=== PATIENT | male | born 1995 | race Caucasian/White ===

== ENCOUNTER 2021-01-22 12:43 | Outpatient (CLI) | payer OTHER, SELFPAY ==
--- NOTE | 2021-01-22 | ECG_ITS ---
Measurements Intervals [place] Rate: 53 P: 53 [place]: 160 QRS: 92 QRSD: 102 T: 64 QT: 386 QTc: 364 Interpretive Statements SINUS BRADYCARDIA WITH SINUS ARRHYTHMIA RIGHT AXIS DEVIATION INCOMPLETE RIGHT BUNDLE BRANCH BLOCK BORDERLINE ECG Electronically Signed On 01-22-2021 13:18:08 CDT by Addi Paniagua D.O.
== END 2021-01-22 12:44 | disposition home or self-care (01) ==
LOC: ANHCARD 12:46
PROVIDERS: PCP Physician Assistant; Visit Provider Physician Assistant
DX: G40.909 Epilepsy, unspecified, not intractable, without status epilepticus (principal); I45.10 Unspecified right bundle-branch block
CPT/HCPCS: 93005

== ENCOUNTER 2023-02-13 17:33 | Emergency (ER) | payer OTHER, SELFPAY ==
--- NOTE | ~2023-02-13 | XR_ITS ---
EXAMINATION: XR knee RT min 4V DATE: 02/13/2023 19:19 INDICATION: Right knee pain. TECHNIQUE: 4 views of right knee were obtained. COMPARISON: None. FINDINGS: Bone alignment is normal. No fracture. There is mild tricompartmental osteoarthritis charac terized by marginal osteophytes. No joint space narrowing. There are surgical changes of anterior cru ciate ligament reconstruction. No knee joint effusion. There is a 5 mm loose body in the anterior int ercondylar notch. IMPRESSION: 1. Mild right knee osteoarthritis. 2. Loose body in the knee joint. Reviewed, dictated and finalized at location E.
--- NOTE | ~2023-02-13 | US_ITS ---
EXAMINATION: US venous doppler LE RT DATE: 02/13/2023 19:39 INDICATION: Right lower limb swelling and pain. TECHNIQUE: Grayscale ultrasound images without and with compression and Doppler ultrasound images of the right lower extremity veins were obtained. COMPARISON: None. FINDINGS: The visualized portions of right common femoral vein, profunda (deep) femoral vein, femoral vein, pop liteal vein, peroneal veins, posterior tibial veins, and greater saphenous vein outflow are patent. IMPRESSION: 1. No deep venous thrombosis. Reviewed, dictated and finalized at location E.
[2023-02-13 17:45] VITALS: BP 139/75; PULSE 77; RESP 18; TEMP 36.4; O2SAT 98
--- NOTE | 2023-02-13 19:01 | ED.EXTPRO ---
HPI - Extremity Problem General Chief complaint: Extremity Problem,Nontraumatic Stated complaint: bilateral leg swelling Time Seen by Provider: 02/13/23 18:06 History of Present Illness HPI Narrative: 27-year-old male reports for evaluation of posterior right knee pain for the past 3 to 4 days with right leg swelling that started yesterday. Patient reports a history of a torn ACL that was repaired in 2018, he believes he retore it a year ago, however has not been evaluated. He reports the pain starts in the posterior aspect of his knee and radiates up his thigh. He denies any recent trauma or injury, ecchymosis, laceration, abrasion, rash, erythema or warmth, fever, history of DVT, weakness or numbness, chest pain or shortness of breath. He has been taking naproxen daily with some relief. Related Data Allergies Allergy/AdvReac Type Severity Reaction Status Date / Time BEE STINGS Allergy Swelling Uncoded 02/13/23 17:34 Review of Systems Review of Systems: CONSTITUTIONAL: Denies fever, chills EYES: Denies visual changes, redness, or discharge. ENT: Denies rhinorrhea, congestion, sore throat, or otalgia. CARDIOVASCULAR: Denies chest pain, palpitations, or edema. RESPIRATORY: Denies cough or dyspnea. GASTROINTESTINAL: Denies abdominal pain, nausea, vomiting, or diarrhea. GENITOURINARY: Denies dysuria or hematuria. SKIN: Denies rash or itching. MUSCULOSKELETAL: See HPI NEUROLOGIC: Denies headache, numbness, dizziness, or weakness. PSYCHIATRIC: Denies anxiety or depression. Exam Narrative: GENERAL: Well-appearing, in no acute distress. Patient resting comfortably examined. He is pleasant and conversational. HEAD: Normocephalic EYES: PERRLA ENT: Nares clear. Mucous membranes moist. Oropharynx without tonsillar hypertrophy exudate or other lesions. NECK: Supple. CHEST: No respiratory distress. Clear to auscultation, no adventitious breath sounds. HEART: Regular rate and rhythm. No murmur heard. Normal peripheral pulses. EXTREMITIES: RLE: Diffuse edema extending from the knee into the ankle. Tenderness to the popliteal fossa with palpation. No warmth, erythema or ballottement to the knee. Negative anterior drawer, posterior drawer. No laxity or pain with varus or valgus stress. DP pulse 2+. Cap refill less than 2. Sensation intact. No tenderness to remaining lower extremity. NEURO: No focal deficits. Alert and oriented x3. PSYCH: Normal mood and affect. Course Course Emergency Course: Offered knee immobilizer and crutches, patient declined and prefers Dimitri wrap. Vital Signs Vital signs: Vital Signs Temperature 97.6 F 02/13/23 17:45 Pulse Rate 77 02/13/23 17:45 Respiratory Rate 18 02/13/23 17:45 Blood Pressure 139/75 02/13/23 17:45 Pulse Oximetry 98 02/13/23 17:45 Oxygen Delivery Room Air 02/13/23 17:45 Temperature 97.6 F 02/13/23 17:45 Pulse Rate 77 02/13/23 17:45 Respiratory Rate 18 02/13/23 17:45 Blood Pressure 139/75 02/13/23 17:45 Pulse Oximetry 98 02/13/23 17:45 Oxygen Delivery Room Air 02/13/23 17:45 MDM - Extremity (Nontraumatic) MDM Narrative Medical decision making narrative: 27-year-old male reports for evaluation of right knee pain and lower extremity swelling for the past 3 to 4 days. Exam reveals tenderness to the popliteal fossa and generalized edema. Patient neurovascularly intact. Dopplers negative. X-ray without acute osseous abnormality. Discussed imaging findings with patient and advised him to follow-up with an orthopedist considering his ACL history. Dimitri wrap provided. Advised patient take Tylenol ibuprofen for pain and RICE. Pt agrees with plan and verbalizes understanding. Vitals stable. ED return precautions discussed. Discharged in stable condition. Discharge Plan Discharge Clinical Impression: Knee pain, right Qualifiers: Chronicity: acute Qualified Code(s): M25.561 - Pain in right knee Patient Disposition: Home, Se
[2023-02-13] MEDS: CYCLOBENZAPRINE HCL 10 MG TABLET PO (19:16)
[2023-02-13] MEDS: ACETAMINOPHEN 500 MG TABLET 1000 MG PO (19:16)
[2023-02-13] MEDS: IBUPROFEN 600 MG TABLET PO (19:16)
== END 2023-02-13 20:18 | disposition home or self-care (01) ==
PROVIDERS: Emergency Provider Physician Assistant; PCP Physician Assistant
DX: M25.561 Pain in right knee (principal); M17.11 Unilateral primary osteoarthritis, right knee
CPT/HCPCS: 73564; 93971; 99284; A9270

== ENCOUNTER 2024-05-28 22:15 | Emergency (ER) | payer OTHER, MEDICAID, SELFPAY ==
--- NOTE | ~2024-05-28 | XR_ITS ---
XR chest 2V Ordering provider: Shasha Serrato PA-C History: 28 years Male with . pleuritic chest pain . Comparison: March 11, 2024 FINDINGS: MEDIASTINUM: The cardiac silhouette is not enlarged. LUNGS: No infiltrates, effusions or pneumothorax. OTHER: No free air under the diaphragm. IMPRESSION: No acute cardiopulmonary pathology. Reviewed, dictated and finalized at location A.
[2024-05-28 22:21] VITALS: BP 125/67; PULSE 67; RESP 17; TEMP 36.3; O2SAT 98
--- NOTE | 2024-05-29 00:27 | ED.GENADULT ---
HPI - General Adult General Chief complaint: Unspecified Stated complaint: pain with inspiration Time Seen by Provider: 05/29/24 00:17 History of Present Illness HPI narrative: patient 28-year-old gentleman who presents emergency department with chief complaint of cough and pain in the chest for with inspiration. Patient reports that said upper respiratory type symptoms for several days reports that he was exposed to asbestos. Related Data Allergies Allergy/AdvReac Type Severity Reaction Status Date / Time BEE STINGS Allergy Swelling Uncoded 02/13/23 17:34 Review of Systems Review of Systems: A 10 system review of systems was completed on the patient and is negative except for what is stated in the HPI. Nursing and ancillary documentation was reviewed. Exam Narrative: GENERAL: Well-appearing, well-nourished, and in no acute distress. HEAD: Normocephalic, atraumatic. EYES: PERRLA and EOMI. ENT: Nares clear, no rhinorrhea or epistaxis. Mucous membranes moist. NECK: Supple. CHEST: Clear to auscultation. No respiratory distress. HEART: Regular rate and rhythm. No murmur heard. Normal peripheral pulses. ABDOMEN: Soft, nontender, nondistended, normal active bowel sounds. EXTREMITIES: Normal range of motion. No edema. SKIN: Warm, dry, no rash. NEURO: No focal deficits. Alert and oriented x3. PSYCH: Normal mood and affect. Course Vital Signs Vital signs: Vital Signs Temperature 36.3 C L 05/28/24 22:21 Pulse Rate 67 05/28/24 22:21 Respiratory Rate 17 05/28/24 22:21 Blood Pressure 125/67 05/28/24 22:21 Pulse Oximetry 98 05/28/24 22:21 Oxygen Delivery Room Air 05/28/24 22:21 Temperature 36.3 C L 05/28/24 22:21 Pulse Rate 67 05/28/24 22:21 Respiratory Rate 17 05/28/24 22:21 Blood Pressure 125/67 05/28/24 22:21 Pulse Oximetry 98 05/29/24 01:18 Oxygen Delivery Room Air 05/29/24 01:18 Medical Decision Making [facility] Narrative Medical decision making narrative: Differential diagnosis includes pneumonia, pneumothorax, bronchitis, viral illness Chest x-ray showed no evidence of focal infiltrate COVID flu and RSV are negative strep is negative Vital Signs Vital Signs: Vital Signs Temperature 36.3 C L 05/28/24 22:21 Pulse Rate 67 05/28/24 22:21 Respiratory Rate 17 05/28/24 22:21 Blood Pressure 125/67 05/28/24 22:21 Pulse Oximetry 98 05/28/24 22:21 Oxygen Delivery Room Air 05/28/24 22:21 Temperature 36.3 C L 05/28/24 22:21 Pulse Rate 67 05/28/24 22:21 Respiratory Rate 17 05/28/24 22:21 Blood Pressure 125/67 05/28/24 22:21 Pulse Oximetry 98 05/29/24 01:18 Oxygen Delivery Room Air 05/29/24 01:18 Lab Data Labs: Lab Results 05/29/24 Range/Units 00:33 Influenza A (RT-PCR) Negative (Negative) Influenza B (RT-PCR) Negative (Negative) RSV (RT-PCR) Negative (Negative) SARS-CoV-2 RNA (RT-PCR) Negative (Negative) Group A Strep (PCR) Not detected (Negative) Discharge Plan Discharge Clinical Impression: Acute upper respiratory infection Patient Disposition: Home, Self-Care Condition: Stable Instructions: Antibiotic Form, Upper Respiratory Infection (ED), Viral Syndrome (ED) Prescriptions: New prednisone 20 mg tablet 40 mg PO DAILY 5 Days Qty: 10 0RF benzonatate 200 mg capsule 200 mg PO TID PRN (Reason: cough) Qty: 21 0RF Follow-up/Referrals: Jose Martin Vergara MD [Physician] - UNKNOWN,DOCTOR [Primary Care Provider] - Time of Disposition: 01:53
[2024-05-29] MEDS: BENZONATATE 100 MG CAPSULE 200 MG PO (00:38)
[2024-05-29] MEDS: predniSONE 20 MG TABLET 60 MG PO (00:39)
[2024-05-29 01:06] LABS: Strep Group A RT-PCR NOT DETECTED (Negative)
[2024-05-29 01:14] LABS: Influenza A QL RT-PCR Negative (Negative); Influenza B QL RT-PCR Negative (Negative); RSV RNA, RT-PCR Negative (Negative); SARS-CoV-2 RNA PCR Negative (Negative)
[2024-05-29 01:18] VITALS: O2SAT 98
[2024-05-29 03:45] VITALS: BP 124/68; PULSE 68; RESP 15; O2SAT 99
== END 2024-05-29 03:49 | disposition home or self-care (01) ==
PROVIDERS: Emergency Provider Emergency Medicine
DX: J06.9 Acute upper respiratory infection, unspecified (principal); Z20.822 Contact with and (suspected) exposure to COVID-19
CPT/HCPCS: 71046; 87637; 87651; 99283; A9270; J7512

== ENCOUNTER 2024-08-07 21:58 | Emergency (ER) | payer OTHER, MEDICAID, SELFPAY ==
--- NOTE | ~2024-08-07 | XR_ITS ---
EXAMINATION: XR chest 1V portable DATE: 08/07/2024 22:56 INDICATION: Malaise and dyspnea TECHNIQUE: frontal view of the chest was obtained. COMPARISON: Chest radiograph dated 05/28/2024 FINDINGS: The lungs remain clear with no focal airspace opacities, pulmonary edema, pleural effusion or pneumot horax. The cardiomediastinal silhouette is normal. Visualized bones and soft tissues are unremarkable . IMPRESSION: 1. Normal chest radiograph. Reviewed, dictated and finalized at location A. MANAGER IMPRESSION: 1. Normal chest radiograph.
[2024-08-07 22:01] VITALS: BP 130/70; PULSE 101; RESP 20; TEMP 37.4; O2SAT 100
--- NOTE | 2024-08-07 22:25 | ECG_ITS ---
Test Date: 2024-08-07 22:50:45 Measurements Intervals [place] Rate: 79 P: 42 [place]: 153 QRS: 94 QRSD: 106 T: 55 QT: 362 QTc: 415 Interpretive Statements SINUS RHYTHM ST ELEVATION IN ANTEROLAT/INF LEADS- PROBABLY EARLY REPOLARIZATION BORDERLINE ECG No previous ECG available for comparison Electronically Signed On 08-08-2024 06:13:18 INSTRUMENTATION AND CONTROL TECHNICIAN by Addi Paniagua D.O.
--- NOTE | 2024-08-07 22:28 | PC.NURSE ---
Patient states he is having palpitations. EKG ordered
--- NOTE | 2024-08-07 22:31 | ED.SOB ---
HPI - SOB/Dyspnea General Chief Complaint: Shortness of Breath/Dyspnea Stated Complaint: SOB Time Seen by Provider: 08/07/24 22:25 History of Present Illness HPI Narrative: 29-year-old male presents to the emergency department for sore throat, generalized malaise, fatigue, body aches, headache, nausea and nasal congestion for 1 day. 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 He denies known fever, vomiting, diarrhea, abdominal pain. Patient took 4 mg of Zofran prior to my evaluation. Related Data Allergies Allergy/AdvReac Type Severity Reaction Status Date / Time BEE STINGS Allergy Swelling Uncoded 08/07/24 22:07 Review of Systems Review of Systems: All systems reviewed & are unremarkable except as noted in HPI and below Exam Narrative: GENERAL: Ill appearing, well-nourished, and in no acute distress. HEAD: Normocephalic, atraumatic. EYES: PERRLA and EOMI. ENT: Nares clear, no rhinorrhea or epistaxis. Mucous membranes moist. bilateral TMs are wells nonbulging with normal canals. Posterior pharynx with erythema and tonsillar exudates. No unilateral tonsillar hypertrophy or uvular deviation. No hot potato voice. Patient tolerating secretions. NECK: Supple. CHEST: Clear to auscultation. No respiratory distress. HEART: Regular rate and rhythm. No murmur heard. Normal peripheral pulses. ABDOMEN: Soft, nontender, nondistended, normal active bowel sounds. EXTREMITIES: Normal range of motion. No edema. SKIN: Warm, dry, no rash. NEURO: No focal deficits. Alert and oriented x3 Course Vital Signs Vital signs: Vital Signs Temperature 99.4 F 08/07/24 22:01 Pulse Rate 101 H 08/07/24 22:01 Respiratory Rate 20 08/07/24 22:01 Blood Pressure 130/70 08/07/24 22:01 Pulse Oximetry 100 08/07/24 22:01 Oxygen Delivery Room Air 08/07/24 22:01 Temperature 99.4 F 08/07/24 22:01 Pulse Rate 101 H 08/07/24 22:01 Respiratory Rate 20 08/07/24 22:01 Blood Pressure 130/70 08/07/24 22:01 Pulse Oximetry 100 08/07/24 22:01 Oxygen Delivery Room Air 08/07/24 22:01 MDM - SOB/Dyspnea MDM Narrative Medical decision making narrative: 29-year-old male presents emergency department for URI sx x1 day. Vitals with mild tachycardia 1 1, otherwise unremarkable. Exam is significant for the above. CBC with leukocytosis of 14.7, no bandemia. Chemistries are unremarkable. Urinalysis unremarkable. Flu, RSV, COVID and mono were negative. Strep is positive. EKG shows sinus rhythm, normal [place] interval, normal QRS duration, normal QTC, no ischemic changes. Patient updated on workup. He received IV fluids, Toradol, Compazine and Benadryl with improvement. He was started on amoxicillin for strep pharyngitis and provided a dose of IV Decadron for symptomatic control. Discussed Tylenol ibuprofen as needed, saltwater gargles and close follow-up with PCP. Strict ED return precautions discussed. He is agreeable to plan verbalized understanding. Discharged in stable condition. Lab Data 08/07/24 22:21 08/07/24 22:21 Labs: Lab Results 08/07/24 08/07/24 Range/Units 22:21 22:22 WBC 14.7 H (4.5-10.0) K/mm3 RBC 4.80 (4.6-6.20) M/mm3 Hgb 14.8 (14.0-18.0) g/dL Hct 41.0 L (42.0-52.0) % MCV 85.4 (80-100) fl MCH 30.8 (26-34) pg MCHC 36.1 H (32-36) g/dl RDW 12.1 (11.5-14.5) % Plt Count 231 (150-375) k/mm3 MPV 8.9 (7.4-10.4) fl Immature Gran % (Auto) 0.3 (0-0.5) % Neut % (Auto) 86.1 H (45.5-73.1) % Lymph % (Auto) 7.5 L (18.3-44.2) % [place] % (Auto) 5.6 (2.6-8.5) % Eos % (Auto) 0.2 (0-4.4) % Baso % (Auto) 0.3 (0.2-1.2) % Lymph # (Auto) 1.10 (0.9-3.2) K/mm3 [place] # (Auto) 0.8 H (0.1-0.6) K/mm3 Eos # (Auto) 0.0 (0-0.3) K/mm3 Baso # (Auto) 0.0 (0.0-0.1) K/mm3 Abs Immat Gran (auto) 0.05 H (0.00-0.031) K/mm3 Absolute Neuts (auto) 12.7 H (1.3-6.7) K/mm3 Absolute Nucleated RBC 0.000 (0.0-0.012) K/mm3 Nucleated RBC % 0.0 (0.0-0.2) % Sodium 136 L (137-145) mmol/L Potassium 3.7 (3.4-5.0) mmol/L Chloride 100 (98-107) mmol/L Carbon Dioxide 25 (22-30) mmol/L Anion Gap 11 (4-12) mmol/L BUN 15 (9-20) mg/dL Creatinine 1.00 (0.7-1.3) mg/dL Estim Creat Clear Calc 119 ml/min Estimated GFR > 60 (59 - ) Glucose 94 (65-110) mg/dL Lactic Acid 0.8 (0.7-2.0) mmol/L Calcium 9.5 (8.4-10.2) mg/dL Total Bilirubin 0.9 (0.2-1.3) mg/dL AST 39 (17-59) U/L ALT 29 (6-50) U/L Alkaline Phosphatase 65 (38-126) U/L Total Protein 8.0 (6.3-8.2) g/dL Albumin 4.7 (3.5-5.1) g/dL Urine Color Yellow (Yellow) Urine Appearance Clear (Clear) Urine pH 6.5 (5.0-9.0) Ur Specific [place] 1.018 (1.001-1.035) Urine Protein Negative (Negative) mg/dL Urine Glucose (UA) Negative (Negative) mg/dL Urine Ketones Negative (Negative) mg/dL Ur Blood (Man) Negative (Negative) Urine Nitrate Negative (Negative) Urine Bilirubin Negative (Negative) Urine Urobilinogen 1.0 (<2.0) mg/dL Leukocyte Esterase Rfl Negative (Negative) CE/UL Monoscreen Negative (Negative) Influenza A (RT-PCR) Negative (Negative) Influenza B (RT-PCR) Negative (Negative) RSV (RT-PCR) Negative (Negative) SARS-CoV-2 RNA (RT-PCR) Negative (Negative) Group A Strep (PCR) Detected A (Negative) Discharge Plan Discharge Clinical Impression: Acute streptococcal pharyngitis Patient Disposition: Home, Self-Care Condition: Stable Instructions: Antibiotic Form, Pharyngitis (ED), Strep Throat (ED) Additional Instructions: Your evaluated in the emergency department for body aches, headache, sore throat and nausea. He tested positive for strep. Please take the antibiotics as directed. Please get oral salt water several times a day as needed and take Tylenol ibuprofen as directed [id number] as needed. Take the nausea medications as needed. Follow-up with your primary care provider. Return to the emergency department if you develop difficulty swallowing, you are unable to tolerate your secretions, uncontrollable fever, you are unable to tolerate food or fluids, or other concerning symptoms. Prescriptions: New amoxicillin 500 mg capsule 500 mg PO Q12H Qty: 20 0RF ondansetron 4 mg tablet,disintegrating 4 mg PO Q8H Qty: 14 0RF No Action prednisone 20 mg tablet 40 mg PO DAILY 5 Days Qty: 10 0RF benzonatate 200 mg capsule 200 mg PO TID PRN (Reason: cough) Qty: 21 0RF Follow-up/Referrals: Wei Dixon MD [Physician] - 1 Day UNKNOWN,DOCTOR [Primary Care Provider] - Stand Alone Forms: Work/School Release IP
[2024-08-07 22:35] LABS: Basophils Percent Auto 0.3 % (0.2-1.2); Eosinophils Percent Auto 0.2 % (0-4.4); Hemoglobin 14.8 g/dL (14.0-18.0); Immature Granulocyte Absolute 0.05 K/mm3 (0.00-0.031); Immature Granulocyte Percent A 0.3 % (0-0.5); Lymphocytes Percent Auto 7.5 % (18.3-44.2); Mean Corpuscular HGB Conc 36.1 g/dl (32-36); Mean Corpuscular Hemoglobin 30.8 pg (26-34); Mean Corpuscular Volume 85.4 fl (80-100); Mean Platelet Volume 8.9 fl (7.4-10.4); Monocytes Absolute Auto 0.8 K/mm3 (0.1-0.6); Monocytes Percent Auto 5.6 % (2.6-8.5); Neutrophils Absolute Auto 12.7 K/mm3 (1.3-6.7); Neutrophils Percent Auto 86.1 % (45.5-73.1); Platelet Count Result 231 k/mm3 (150-375); Red Cell Distribution Width 12.1 % (11.5-14.5); White Blood Count 14.7 K/mm3 (4.5-10.0)
[2024-08-07 22:40] LABS: Add Urine Microscopic? NO; Appearance Urine Clear (Clear); Bilirubin Urine Negative (Negative); Blood Urine Negative (Negative); Color Urine Yellow (Yellow); Glucose Urine UA Negative (Negative); Ketones Urine Negative (Negative); Leukocyte Esterase Ur Negative LEU/UL (Negative); Nitrate Urine Negative (Negative); Protein Urine Negative (Negative); Specific Grav Ur 1.018 (1.001-1.035); pH Urine 6.5 (5.0-9.0)
[2024-08-07 22:44] LABS: Alanine Aminotransferase 29 U/L (6-50); Albumin Level 4.7 g/dL (3.5-5.1); Alkaline Phosphatase 65 U/L (38-126); Anion Gap 11 mmol/L (4-12); Aspartate Amino Transferase 39 U/L (17-59); Bilirubin,Total 0.9 mg/dL (0.2-1.3); Blood Urea Nitrogen 15 mg/dL (9-20); Calcium 9.5 mg/dL (8.4-10.2); Carbon Dioxide 25 mmol/L (22-30); Chloride 100 mmol/L (98-107); Estimated CRCL calculation 119 ml/min; Estimated Glomerular Filt Rate > 60; Glucose 94 mg/dL (65-110); Potassium 3.7 mmol/L (3.4-5.0); Sodium 136 mmol/L (137-145)
[2024-08-07 22:45] LABS: Lactic Acid Reflex 0.8 mmol/L (0.7-2.0)
[2024-08-07] MEDS: diphenhydrAMINE HCl INJ 50 MG/ML VIAL 25 MG IV PUSH (22:45)
[2024-08-07] MEDS: PROCHLORPERAZINE EDISYLATE 10 MG/2 ML VIAL IV PUSH (22:45)
[2024-08-07] MEDS: KETOROLAC 15 MG/ML VIAL (*BKC) IV PUSH (22:46)
[2024-08-07] MEDS: SODIUM CHLORIDE 0.9% IV 1,000 ML 999 ML IV CONT (22:46)
[2024-08-07 22:56] LABS: Strep Group A RT-PCR DETECTED (Negative)
[2024-08-07 23:11] LABS: Influenza A QL RT-PCR Negative (Negative); Influenza B QL RT-PCR Negative (Negative); RSV RNA, RT-PCR Negative (Negative); SARS-CoV-2 RNA PCR Negative (Negative)
[2024-08-07] MEDS: AMOXICILLIN 500 MG CAPSULE PO (23:42)
[2024-08-07] MEDS: ACETAMINOPHEN 500 MG TABLET 1000 MG PO (23:42)
[2024-08-07] MEDS: dexAMETHasone SOD PHOS INJ 10 MG/ML 1 ML VIAL IV PUSH (23:42)
[2024-08-08 00:04] LABS: Monoscreen Negative (Negative); Negative Monotest Control Negative (Negative); Positive Monotest Control Positive (Positive)
== END 2024-08-08 00:18 | disposition home or self-care (01) ==
PROVIDERS: Emergency Medicine; Emergency Provider Physician Assistant
DX: J02.0 Streptococcal pharyngitis (principal); Z20.822 Contact with and (suspected) exposure to COVID-19
CPT/HCPCS: 36415; 71045; 80053; 81003; 83605; 85025; 86308; 87637; 87651; 93005; 96361; 96374; 96375; 99284; A9270; J0780; J1100; J1200; J1885; J7030